=== PATIENT | female | born 1960 | race Caucasian/White ===

== ENCOUNTER 2023-09-18 11:10 | Emergency (ER) | payer OTHER ==
[2023-09-18 11:30] VITALS: BP 142/93; PULSE 74; RESP 18; TEMP 98.3; BMI 32.4
[2023-09-18] MEDS ORDERED: IBUPROFEN 400 MG TABLET (FP) PO ONE ×2 (12:48→13:01)
[2023-09-18] MEDS ORDERED: ACETAMINOPHEN 500 MG TABLET (FP) PO ONE (12:48)
[2023-09-18] MEDS ORDERED: ACETAMINOPHEN 500 MG TABLET (FP) ONE (13:01)
== END 2023-09-18 13:23 | disposition home or self-care (01) ==
LOC: JER 11:10
DX: R07.9 Chest pain, unspecified (principal); S80.211A Abrasion, right knee, initial encounter; S90.811A Abrasion, right foot, initial encounter; V43.52XA Car driver injured in collision with other type car in traffic accident, initial encounter; Y92.410 Unspecified street and highway as the place of occurrence of the external cause
CPT/HCPCS: 71046-TC-FY; 73630-TC-RT-FY; 93005; 93010; 99284-25